=== PATIENT | male | born 1990 | race Two or more races ===

== ENCOUNTER 2019-04-15 17:21 | Emergency (ER) | payer SELFPAY ==
[~2019-04-15] VITALS: Ht 182.9 cm; Wt 90.7 kg
[2019-04-15 18:34] VITALS: BP 131/84
[2019-04-15] MEDS ORDERED: DexAMETHasone SOD PHOS 10MG/1ML VIAL INJ IM ONE (19:00)
[2019-04-15] MEDS ORDERED: cefTRIAXone SOD 1,000 MG VL IM ONE (19:00)
== END 2019-04-15 19:50 | disposition home or self-care (01) ==
LOC: ER 17:21
DX: B86 Scabies (principal)
CPT/HCPCS: 96372; 99283; J0696; J1100